=== PATIENT | male | born 1990 | race African-American/Black ===

== ENCOUNTER 2016-07-06 17:35 | Emergency (ER) | payer SELFPAY ==
[~2016-07-06] VITALS: Ht 170.2 cm; Wt 83.9 kg
[2016-07-06 19:48] VITALS: BP 135/95
[2016-07-06] MEDS ORDERED: BENZ100C PO (20:13)
[2016-07-06] MEDS ORDERED: PROVENTIL HFA6.7 GM IH (20:13)
--- NOTE | 2016-07-06 20:14 | PHYS DOC ---
Past Medical History Past Medical History: Asthma Past Surgical History: No Surgical History Alcohol Use: None Drug Use: None Adult General Chief Complaint Chief Complaint: COUGH HPI HPI Patient is a 26 year old female who presents with cough for a week. Denies nasal congestion, fever, or shortness of breath. Reports asthma without wheezing and the request for inhaler refill and work note. Review of Systems Review of Systems Constitutional: Denies fever or chills Eyes: Denies change in visual acuity, redness, or eye pain HENT: Denies nasal congestion or sore throat Respiratory: Denies shortness of breath. Cough for one week Cardiovascular: No additional information not addressed in HPI GI: Denies abdominal pain, nausea, vomiting, bloody stools or diarrhea : Denies dysuria or hematuria Musculoskeletal: Denies back pain or joint pain Integument: Denies rash or skin lesions Neurologic: Denies headache, focal weakness or sensory changes [] Endocrine: Denies polyuria or polydipsia [] Allergies Allergies Allergies Coded Allergies Type Severity Reaction Last Updated Verified No Known Drug Allergies 10/11/14 No Physical Exam Physical Exam Constitutional: Well developed, well nourished, no acute distress, non-toxic appearance. HENT: Normocephalic, atraumatic, bilateral external ears normal, oropharynx moist, no oral exudates, nose normal. Eyes: PERRLA, EOMI, conjunctiva normal, no discharge. Neck: Normal range of motion, no tenderness, supple, no stridor. Cardiovascular:Heart rate regular rhythm, no murmur Lungs & Thorax: Bilateral breath sounds clear to auscultation without wheezing , rhonchi or rales Abdomen: Bowel sounds normal, soft, no tenderness, no masses, no pulsatile masses. Skin: Warm, dry, no erythema, no rash. Back: No tenderness, no CVA tenderness. Extremities: No tenderness, no cyanosis, no clubbing, ROM intact, no edema. Neurologic: Alert and oriented X 3, normal motor function, normal sensory function, no focal deficits noted. [] Psychologic: Affect normal, judgement normal, mood normal. [] Current Patient Data Vital Signs Vital Signs Date Time Temp Pulse Resp B/P Pulse Ox O2 Delivery O2 Flow Rate FiO2 07/06/16 19:48 98.5 90 18 100 Room Air 98.5 EKG EKG [] Radiology/Procedures Radiology/Procedures [] Impressions: 1. Cough 2. Asthma Course & Med Decision Making Course & Med Decision Making Pertinent Labs and Imaging studies reviewed. (See chart for details) [] Dragon Disclaimer Dragon Disclaimer This electronic medical record was generated, in whole or in part, using a voice recognition dictation system. Departure Departure Impression: Primary Impression: Asthma exacerbation Additional Impression: Cough Disposition: 01 HOME, SELF-CARE Condition: STABLE Referrals: NO PCP (PCP) Patient Instructions: Asthma, Adult, [id number], Cough, Adult, [id number] Additional Instructions: 1. Take medication as prescribed. 2. Return if problems or concerns 3. Follow up with primary doctor in 1-2 days. Scripts Benzonatate (Tessalon Perle)100 Mg [id number] Mg PO TID PRN COUGH #10 CAP Prov:SAM HARTLEY APRN 07/06/16 Albuterol Sulfate (Proventil Hfa Inhaler)6.7 Gm Hfa.aer.ad1 Puff IH PRN Q4HRS PRN WHEEZING #1 INHALER Ref 0 Prov:SAM HARTLEY APRN 07/06/16 Problem Qualifiers SAM HARTLEY APRN Jul 06, 2016 20:14
== END 2016-07-06 20:35 | disposition home or self-care (01) ==
LOC: ER 17:35
DX: J45.901 Unspecified asthma with (acute) exacerbation (principal)
CPT/HCPCS: 99283

== ENCOUNTER 2017-02-24 10:26 | Emergency (ER) | payer SELFPAY ==
[~2017-02-24 10:26] MED LIST: ALBU0.63 NEB; BENZ100C PO; PRED50TA PO; PROAIR HFA8.5 GM INH; PROVENTIL HFA6.7 GM IH
--- NOTE | 2017-02-24 11:45 | PHYS DOC ---
Past Medical History Past Medical History: Asthma Past Surgical History: No Surgical History Alcohol Use: None Drug Use: None Adult General Chief Complaint Chief Complaint: COUGH HPI HPI 27-year-old male no significant past medical history except smokes an occasional cigarette but not every day, now presents to the emergency department complaining of productive cough with yellow sputum 5 days. Patient states he has some discomfort with coughing but no fevers chills sweats or shaking chills. No headache or stiff neck. Denies exertional chest pain or any exertional symptoms whatsoever. No pleuritic pain. She is not currently on antibiotics nor has he been seen for this illness previously. He tried to go to work but was Sent home because of his cough. Review of Systems Review of Systems Constitutional: Denies fever or chills [] Eyes: Denies change in visual acuity, redness, or eye pain [] HENT: Denies nasal congestion or sore throat [] Respiratory: Denies cough or shortness of breath [] Cardiovascular: No additional information not addressed in HPI [] GI: Denies abdominal pain, nausea, vomiting, bloody stools or diarrhea [] : Denies dysuria or hematuria [] Musculoskeletal: Denies back pain or joint pain [] Integument: Denies rash or skin lesions [] Neurologic: Denies headache, focal weakness or sensory changes [] Endocrine: Denies polyuria or polydipsia [] Allergies Allergies Allergies Coded Allergies Type Severity Reaction Last Updated Verified No Known Drug Allergies 10/11/14 No Physical Exam Physical Exam Well-appearing 19-year-old male no acute distress normal respiratory rate and pulse ox. Scattered rhonchi. No wheezes or rales or rubs Constitutional: Well developed, well nourished, no acute distress, non-toxic appearance. [] HENT: Normocephalic, atraumatic, bilateral external ears normal, oropharynx moist, no oral exudates, nose normal. [] Eyes: PERRLA, EOMI, conjunctiva normal, no discharge. [] Neck: Normal range of motion, no tenderness, supple, no stridor. [] Cardiovascular:Heart rate regular rhythm, no murmur [] Lungs & Thorax: Bilateral breath sounds clear to auscultation [] Abdomen: Bowel sounds normal, soft, no tenderness, no masses, no pulsatile masses. [] Skin: Warm, dry, no erythema, no rash. [] Back: No tenderness, no CVA tenderness. [] Extremities: No tenderness, no cyanosis, no clubbing, ROM intact, no edema. [] Neurologic: Alert and oriented X 3,, no focal deficits noted. [] Psychologic: Affect normal, judgement normal, mood normal. [] Current Patient Data Vital Signs Vital Signs Date Time Temp Pulse Resp B/P (MAP) Pulse Ox O2 Delivery O2 Flow Rate FiO2 02/24/17 10:32 98.1 66 18 134/87 (103) 96 Room Air 98.1 EKG EKG [] Radiology/Procedures Radiology/Procedures [] Course & Med Decision Making Course & Med Decision Making Pertinent Labs and Imaging studies reviewed. (See chart for details) Signs and symptoms consistent with bronchitis with yellow sputum productive cough. Patient is aware of the possibility of a viral etiology alone but he will take Zithromax prescription as written. Patient is also aware of the possibility of a an atypical infection for which this would also be appropriate treatment. He does not smoke every day and only occasionally smokes a cigarette by his description. Discussed with patient complete smoking cessation would benefit his long-term health. No further workup or treatment indicated in ED as patient is very well-appearing with benign exam. He agrees with outpatient follow-up and strict return precautions given [] Dragon Disclaimer Dragon Disclaimer This electronic medical record was generated, in whole or in part, using a voice recognition dictation system. Departure Departure Impression: Primary Impression: Atypical pneumonia Disposition: 01 HOME, SELF-CARE Referrals: NO PCP (PCP) Additional Instructions: Your persistent productive cough suggest that you have a pulmonary infection. This could be a viral infection alone however there is a possibility that could be a bacterial infection. It could also be an atypical pneumonia which is infection that requires an antibiotic for fever. We prescribed Zithromax. 2 pills the first and one pill a day for the following 4 days. Take this as prescribed. Use Mucinex DM [id number] as needed for cough and to break up mucus. Follow-up with your doctor tomorrow and return immediately for new severe worsening symptoms. BRENNA ROBB MD Feb 24, 2017 11:45
[2017-02-24 11:48] VITALS: BP 140/92
--- NOTE | 2017-02-25 13:42 | EKG ---
[facility] [address] [place] [address] Test Date: 2017-02-24 Test Time: 10:33:21 Pat Name: ANA DONALD Department: Room: Gender: M Individual P[employer] Ad[employer]er: : 1990 Requested By: BRENNA ROBB Order Number: [id number] Reading MD: Patrick Allen Measurements Intervals [place] Rate: 63 P: 38 LA: 148 QRS: 37 QRSD: 84 T: 18 QT: 388 QTc: 400 Interpretive Statements SINUS RHYTHM Electronically Signed On 02-27-2017 11:10:58 CDT by Patrick Allen
== END 2017-02-24 11:57 | disposition home or self-care (01) ==
LOC: ER 10:26
DX: J18.9 Pneumonia, unspecified organism (principal); J45.909 Unspecified asthma, uncomplicated; F17.210 Nicotine dependence, cigarettes, uncomplicated
CPT/HCPCS: 93005; 99283-25

== ENCOUNTER 2017-04-19 08:00 | Emergency (ER) | payer SELFPAY ==
[2017-04-19 08:16] VITALS: BP 130/81
[2017-04-19] MEDS ORDERED: IPRATRPIUM/ALBUTEROL 0.5/2.5MG 3 ML NEBU. NEB ONE (08:45)
[2017-04-19] MEDS ORDERED: DEXAMETHASONE SOD PHOS 4 MG/ML VIAL PO ONE (08:45)
--- NOTE | 2017-04-19 09:13 | RAD ---
PA and lateral chest radiographs 04/19/2017. Clinical History: Cough and shortness of breath for one day. PA and lateral digital radiographs of the chest were obtained. Comparison study is dated 03/24/2009. The cardiac and mediastinal silhouettes are within normal limits in size and configuration. No pulmonary infiltrate is seen. No pleural effusion or pneumothorax is noted. The osseous structures are grossly intact. Impression: No radiographic evidence of active cardiopulmonary disease.
--- NOTE | 2017-04-19 09:23 | ED.ADGEN ---
Past Medical History Past Medical History: Asthma Past Surgical History: No Surgical History Alcohol Use: None Drug Use: None Adult General Chief Complaint Chief Complaint: ASTHMA HPI HPI Patient is a 27 year old man, history of asthma and seasonal allergies, who presents to the emergency department with a complaint of cough, wheeze, rhinorrhea, and 2 episodes of posttussive emesis that occurred this morning. Patient states that he ran out of his albuterol inhaler and his nebulizer treatments over a week ago. He states that he sometimes uses his inhaler up to 2 times to 3 times a day during weather changes on his seasonal allergies are acting up. He states that he has noted worsening wheezing over the past several days, nonpertinent of cough, states that he began experiencing chest tightness today prompting him to come to the ED. Patient noted have an oxygen saturation at 94-95% on room air, and is slightly tachypnic. He denies any fevers or chills , states his cough was nonproductive, but he is a pulses of emesis as stated. He denies any weakness, numbness, tingling, swelling extremities, rashes, injuries, sick contacts or exposures other complaints. He does not have a primary care provider. Review of Systems Review of Systems Constitutional: Denies fever or chills. [] Eyes: Denies change in visual acuity. [] HENT: Denies nasal congestion or sore throat. [] Respiratory: Cough, shortness of breath and chest tightness with posttussive emesis. Cardiovascular: Chest tightness, no edema. GI: Denies abdominal pain, nausea, vomiting, bloody stools or diarrhea. [] : Denies dysuria. [] Musculoskeletal: Denies back pain or joint pain. [] Integument: Denies rash. [] Neurologic: Denies headache, focal weakness or sensory changes. [] Endocrine: Denies polyuria or polydipsia. [] Lymphatic: Denies swollen glands. [] Psychiatric: Denies depression or anxiety. [] Current Medications Current Medications Current Medications Medications (Trade) Dose Ordered Sig/Mary Start Time Stop Time Status Last Admin Dose Admin Albuterol/ Ipratropium (Duoneb) 3 ml 1X ONCE 04/19/17 08:45 04/19/17 08:46 DC 04/19/17 08:42 3 ML Dexamethasone Sodium Phosphate (Decadron) 6 mg 1X ONCE 04/19/17 08:45 04/19/17 08:46 DC 04/19/17 09:17 6 MG Allergies Allergies Allergies Coded Allergies Type Severity Reaction Last Updated Verified No Known Drug Allergies 10/11/14 No Physical Exam Physical Exam Constitutional: Well developed, well nourished, patient with mild tachypnea, non -toxic appearance. [] HENT: Normocephalic, atraumatic, bilateral external ears normal, oropharynx moist, no oral exudates, nose normal, mild turbinate swelling bilaterally. [] Eyes: PERRLA, EOMI, conjunctiva normal, no discharge. [] Neck: Normal range of motion, no tenderness, supple, no stridor. [] Cardiovascular:Heart rate regular rhythm, no murmur , S1, S2, rubs or gallops.[] Lungs & Thorax: Patient with diminished breath of the bases bilaterally, and scattered wheezing throughout. No rhonchi or rales, no chest or crepitus or tenderness.[] Abdomen: Bowel sounds normal, soft, no tenderness, no masses, no pulsatile masses. [] Skin: Warm, dry, no erythema, no rash. [] Back: No tenderness, no CVA tenderness. [] Extremities: No tenderness, no cyanosis, no clubbing, ROM intact, no edema. Negative Homans sign.[] Neurologic: Alert and oriented X 3, normal motor function, normal sensory function, no focal deficits noted. [] Psychologic: Affect normal, judgement normal, mood normal. [] Current Patient Data Vital Signs Vital Signs Date Time Temp Pulse Resp B/P (MAP) Pulse Ox O2 Delivery O2 Flow Rate FiO2 04/19/17 08:42 95 Room Air 04/19/17 08:16 98.2 101 20 98.2 EKG EKG Not indicated.[] Radiology/Procedures Radiology/Procedures [][facility] [address] [place] [address] IMAGING REPORT Signed PATIENT: ANA DONALD ACCOUNT: [id number] : 1990 LOCATION: ER AGE: 27 SEX: M EXAM STATUS: REG ER ORD. PHYSICIAN: CUATE WILDER DO REASON: SOA/cough PROCEDURE: CHEST PA & LATERAL PA and lateral chest radiographs 04/19/2017. Clinical History: Cough and shortness of breath for one day. PA and lateral digital radiographs of the chest were obtained. Comparison study is dated 03/24/2009. The cardiac and mediastinal silhouettes are within normal limits in size and configuration. No pulmonary infiltrate is seen. No pleural effusion or pneumothorax is noted. The osseous structures are grossly intact. Impression: No radiographic evidence of active cardiopulmonary disease. DICTATED and SIGNED BY: JULIO CESAR FERGUSON MD DATE: 04/19/17906 CC: CUATE WILDER DO; NO PCP ~ Course & Med Decision Making Course & Med Decision Making Pertinent Labs and Imaging studies reviewed. (See chart for details) Patient received DuoNeb and Decadron in the ED, on reevaluation is feeling much better. Chest x-ray obtained due to wheezing and cough, was unremarkable. I did discuss the patient importance of establishing a primary care provider, also importance of using medications as directed, and concerning symptoms that prompt return to the emergency department. Patient voiced understanding and agreement, oxygen saturation other vitals remained stable on the monitor, patient discharged home in stable condition with list of available providers, prescription for albuterol inhaler, and short course of prednisone. Dragon Disclaimer Dragon Disclaimer This electronic medical record was generated, in whole or in part, using a voice recognition dictation system. Departure Impression: Primary Impression: Asthma exacerbation Disposition: HOME, SELF-CARE Condition: IMPROVED Scripts Prednisone (PREDNISONE) 20 Mg Tablet 2 TAB PO DAILY, #6 TAB Prov: CUATE WILDER DO 04/19/17 Albuterol Sulfate (PROVENTIL HFA INHALER) 6.7 Gm Hfa.aer.ad 1 PUFF IH PRN Q4HRS Y for FOR ASTHMA, #1 INHALER 0 Refills Prov: CUATE WILDER DO 04/19/17 CUATE WILDER DO Apr 19, 2017 09:23
[2017-04-19] MEDS ORDERED: PROVENTIL HFA6.7 GM IH (10:02)
[2017-04-19] MEDS ORDERED: PRED20TA PO (10:02)
== END 2017-04-19 10:09 | disposition home or self-care (01) ==
LOC: ER 08:00
DX: J45.901 Unspecified asthma with (acute) exacerbation (principal); Z79.899 Other long term (current) drug therapy
CPT/HCPCS: 71020; 94640; 99284; J1100; J7620

== ENCOUNTER 2017-07-17 09:36 | Emergency (ER) | payer SELFPAY ==
[2017-07-17] MEDS: IBUPROFEN 600 MG TABLET. PO (10:04)
== END 2017-07-17 11:03 | disposition home or self-care (01) ==
LOC: ER 09:36
DX: S86.911A Strain of unspecified muscle(s) and tendon(s) at lower leg level, right leg, initial encounter (principal); J45.909 Unspecified asthma, uncomplicated; X58.XXXA Exposure to other specified factors, initial encounter; Y93.89 Activity, other specified; Y92.89 Other specified places as the place of occurrence of the external cause; Y99.8 Other external cause status
CPT/HCPCS: 29505; 73562; 99284

== ENCOUNTER 2017-10-17 10:04 | Emergency (ER) | payer SELFPAY ==
[2017-10-17] MEDS: ALBUTEROL SULFATE 2.5 MG/3 ML NEBU. CONT NEB (11:09)
[2017-10-17] MEDS: predniSONE 10 MG TABLET PO (11:36)
== END 2017-10-17 12:50 | disposition home or self-care (01) ==
LOC: ER 12:50
DX: J45.901 Unspecified asthma with (acute) exacerbation (principal)
CPT/HCPCS: 94640; 94644; 99285-25; J7512; J7613

== ENCOUNTER 2017-12-11 18:11 | Emergency (ER) | payer SELFPAY ==
[2017-12-11] MEDS: IPRATRPIUM/ALBUTEROL 0.5/2.5MG 3 ML NEBU. NEB ×2 (18:32)
[2017-12-11] MEDS: methylPREDNISolone SOD SUCC PF 125 MG/2 ML VIAL. IM (18:51)
[2017-12-11] MEDS: ALBUTEROL SULFATE 2.5 MG/3 ML NEBU. CONT NEB (19:19)
== END 2017-12-11 20:16 | disposition home or self-care (01) ==
LOC: ER 18:11
DX: J45.901 Unspecified asthma with (acute) exacerbation (principal)
CPT/HCPCS: 94640; 94644; 96372; 99285-25; J2930; J7613; J7620